=== PATIENT | female | born 1945 | race Caucasian/White ===

== ENCOUNTER 2016-10-30 05:44 | Day surgery (SDC) | payer OTHER ==
[2016-10-30] MEDS ORDERED: LIDOCAINE 1% 5 ML SDV ID PRN (06:37)
[2016-10-30] MEDS ORDERED: LR 1,000 ML IV ONE (06:37)
[2016-10-30] MEDS ORDERED: fentaNYL 100 MCG/2 ML INJ ONE (07:13)
[2016-10-30] MEDS ORDERED: PROPOFOL/EMULSION 500 MG/50 ML BOTTLE IV ONE ×2 (07:13→07:47)
[2016-10-30] MEDS ORDERED: ONDANSETRON 4 MG/2 ML VIAL ONE (07:14)
[2016-10-30] MEDS ORDERED: DEXAMETHASONE 4 MG/ML VIAL ONE ×2 (07:14)
[2016-10-30] MEDS ORDERED: LIDOCAINE 2% 100 MG/5 ML SYR ONE (07:14)
[2016-10-30] MEDS ORDERED: MIDAZOLAM 2 MG/2 ML VIAL ONE (07:21)
--- NOTE | 2016-10-30 09:20 | GPN ---
[f rep st] PROCEDURE NOTE PREPROCEDURE DIAGNOSES: 1. Hoarseness. 2. Laryngopharyngeal reflux. 3. Hiatal hernia. 4. Need for screening colonoscopy. POSTPROCEDURE DIAGNOSES: 1. Large 5 cm hiatal hernia. 2. Mild antral gastritis. 3. Mild to moderate rodriguez diverticulosis. 4. Grade 2 internal hemorrhoids. PROCEDURES: EGD with biopsies and colonoscopy. MEDICATIONS: Monitored anesthesia care. INDICATIONS: The patient is a 71-year-old female with a history of hoarseness and laryngopharyngeal reflux who was recently seen in our office by Dr. Brower for worsening reflux and a large hiatal he rnia. 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 DESCRIPTION OF PROCEDURE: The upper endoscope was inserted into the esophagus, into the stomach and second portion of the duodenum. The GE junction is located at 35 cm from the incisors. She has a large 5 cm sliding hiatal hernia. There is no evidence of Whalen esophagitis or varices. She has mild antral gastritis as noted by erythema. Biopsies were taken using cold biopsy forceps to evalua te for Helicobacter pylori. The duodenum and second portion were normal. The patient was then repositioned and the adult colonoscope was advanced into the terminal ileum. T he terminal ileum, ileocecal valve, appendiceal orifice, and cecum appeared normal. She has mild to moderate rodriguez diverticulosis, left greater than right involvement. The majority of the diverticula are small with some medium diverticula as well. The mucosa in the ascending colon, hepatic flexure, transverse colon, splenic flexure, sigmoid colon, descending colon, and rectum is normal. Retrofle xed views in the rectum show grade 2 internal hemorrhoids. No polyps were found. IMPRESSION: 1. Large sliding hiatal hernia. 2. Mild antral gastritis. 3. Rodriguez mild to moderate diverticulosis. 4. Grade 2 internal hemorrhoids. RECOMMENDATIONS: 1. Discharge to home with escort. 2. Advance diet as tolerated. 3. Continue current acid suppression therapy. She was recently increased to 40 mg of omeprazole da rachna and ranitidine 300 mg at night, which is controlling her reflux symptoms. 4. Follow up with final biopsy results, which are available within 10 days. 5. Follow up with Dr. Brower in GI clinic as previously scheduled. 6. Repeat screening colonoscopy in 10 years. This should be scheduled at the hospital. Thank you for allowing me to participate in the care of your patient. Please do not hesitate to nestor plascencia with questions. /[id number]/MODL
== END 2016-10-30 09:00 | disposition home or self-care (01) ==
LOC: FSGY 05:44
PROVIDERS: ATTEND Internal Medicine Gastroenterology
DX: K29.70 Gastritis, unspecified, without bleeding (principal); K44.9 Diaphragmatic hernia without obstruction or gangrene; K57.30 Diverticulosis of large intestine without perforation or abscess without bleeding; K64.8 Other hemorrhoids; K21.9 Gastro-esophageal reflux disease without esophagitis
CPT/HCPCS: J1100; J2001; J2250; J2405; J2704; J3010

== ENCOUNTER → 2016-11-01 | Outpatient (CLI) | payer OTHER | LOC: FIMAGING 07:46 | PROVIDERS: ATTEND Internal Medicine Pulmonary Disease | DX: J44.9 Chronic obstructive pulmonary disease, unspecified (principal); R91.8 Other nonspecific abnormal finding of lung field; K44.9 Diaphragmatic hernia without obstruction or gangrene; I25.10 Atherosclerotic heart disease of native coronary artery without angina pectoris ==

== ENCOUNTER → 2017-02-12 | Outpatient (CLI) | payer OTHER | LOC: FIMAGING 07:36 | PROVIDERS: ATTEND Internal Medicine | DX: Z12.31 Encounter for screening mammogram for malignant neoplasm of breast (principal) | CPT/HCPCS: G0202 ==

== ENCOUNTER → 2017-05-23 | Outpatient (CLI) | payer OTHER | LOC: FIMAGING 07:43 | PROVIDERS: ATTEND Internal Medicine Pulmonary Disease | DX: R91.1 Solitary pulmonary nodule (principal); R59.9 Enlarged lymph nodes, unspecified ==

== ENCOUNTER → 2017-06-07 | Outpatient (CLI) | payer OTHER | LOC: FIMAGING 04-19 08:47 | PROVIDERS: ATTEND Internal Medicine | DX: Z13.820 Encounter for screening for osteoporosis (principal); M85.89 Other specified disorders of bone density and structure, multiple sites ==

== ENCOUNTER 2017-12-26 07:39 | Day surgery (SDC) | payer OTHER ==
--- NOTE | 2017-12-26 07:32 | PDHPUP ---
History & Physical Update H&P update statement: This history and physical update is based on an assessment of the patient which was completed after admission or registration (within 24 hours), but prior to the surgery/procedure. H&P update: H&P reviewed & patient examined, no change in patient's condition since H&P completed
[2017-12-26] MEDS ORDERED: ceFAZolin 2 GM/SWFI 2 GM/20 ML SYR IVP ONE (07:57)
[2017-12-26] MEDS ORDERED: LIDOCAINE 1% 2 ML INJ ID PRN (08:00)
[2017-12-26] MEDS ORDERED: LR 1,000 ML IV ONE (08:00)
[2017-12-26] MEDS ORDERED: ceFAZolin 2 GM in D5W 100 ML IV ONE (08:00)
--- NOTE | 2017-12-26 08:18 | POSTANESTH ---
Post Anesthetic Evaluation Cardiovascular Status: Normal, Stable Respiratory Status: Normal, Stable Level of Consciousness/Mental Status: Can Participate in Eval, Alert and Oriented Pain Control: Adequate, Prn Tx Ordered Nausea/Vomiting Control: Adequate, Prn Tx Ordered Complications Possibly Related to Anesthesia: None Noted
--- NOTE | 2017-12-26 08:22 | PDANEPAE ---
ANE History of Present Illness 72 yo female for port placement. ANE Past Medical History - Cardiovascular History Hx Hypertension: No Hx Arrhythmias: Yes Hx Chest Pain: No Hx Coronary Artery / Peripheral Vascular Disease: No Hx CHF / Valvular Disease: No Hx Palpitations: No Cardiovascular History Comment: hypercholesterolemia. svt- worse when on chemo (2014 for original uterine cancer) per pt report. ascending aortic aneurysm ( 3.6 cm, small). has been seen at [facility], recently seen at [facility] since there is where she is doing cancer treatment - Pulmonary History Hx COPD: Yes Hx Asthma/Reactive Airway Disease: No Hx Recent Upper Respiratory Infection: No Hx Oxygen in Use at Home: Yes O2 in Use at Home (L/minute): 2.5l at [facility] Hx Sleep Apnea: No Sleep Apnea Screening Result - Last Documented: Positive Pulmonary History Comment: hx of maty uses o2, getting another sleep study done per resp recommendations. pulmonary mets. ct guided lung bx in october ended up with pneumo- resolved on it's own per pt report. mild emphysema - Neurologic History Hx Cerebrovascular Accident: No Hx Seizures: No Hx Dementia: No Neurologic History Comment: compression fx of thoracic vertebra - Endocrine History Hx Diabetes: No Hypothyroid: No Obesity: no - Renal History Hx Renal Disorders: No Renal History Comment: hx of renal calculi for years no problems currently - Liver History Hx Hepatic Disorders: No - Neurological & Psychiatric Hx Hx Neurological and Psychiatric Disorders: Yes Neurological / Psychiatric History Comment: depression. 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 basal cell. squamous cell - Congenital Disorder History Hx Congenital Disorders: No - GI History GERD: moderate Hx Gastrointestinal Disorders: Yes Gastrointestinal History Comment: large hiatal hernia. reflux. diverticulitis. hx of egd and colonoscopy 10/2016 - Other Health History Other Health History: wears glasses. osteopenia - Chronic Pain History Chronic Pain: No - Surgical History Prior Surgeries: 10/31/17 ct guided lung bx at [facility] ended up with pneumothorax- resoloved on own. 10/30/16 egd and colonoscopy with Amy. tonsils at 7 yo. vein stripping in right leg 1970. 1989 septoplasty. 2005 face lift, upper blephloplasty. 2012 radical hysterectomy ANE Review of Systems Review of Systems: - Exercise capacity METS (RN): 3 METS - Systems Respiratory: Reports: cough (worse cough with smoke/allergies recently) ANE Patient History - Allergies Allergies/Adverse Reactions: No Known Allergies Allergy (Verified 12/25/17 15:34) - Home Medications Home Medications: Benzonatate 03/23/15 [Last Taken 12/19/17] Biotin 03/23/15 [Last Taken 12/25/17 20:00] Fluticasone Propionate 03/23/15 [Last Taken 12/25/17] Omeprazole 09/20/16 [Last Taken 12/26/17 06:00] Proair Hfa Icu (*) 09/20/16 [Last Taken 12/23/17] Ranitidine HCl 09/20/16 [Last Taken 12/25/17 08:00] Singulair 09/20/16 [Last Taken 12/25/17] Acyclovir Prn 12/25/17 [Last Taken Unknown] Anoro Ellipta 62.5-25 Mcg INH 12/25/17 [Last Taken 12/26/17 06:00] Benadryl At Hs 12/25/17 [Last Taken 12/25/17 20:00] Mucinex Dm ER 1,200-60 mg Tab 12/25/17 [Last Taken 12/26/17 06:00] Sertraline HCl 12/25/17 [Last Taken 12/25/17 22:00] - NPO status NPO Since - Liquids (Date): 12/26/17 NPO Since - Liquids (Time): 06:00 NPO Since - Solids (Date): 12/25/17 NPO Since - Solids (Time): 21:00 - Anes Hx Anes Hx: post operative nausea and vomiting - Smoking Hx Smoking Status: Former smoker Marijuana use: No - Alcohol Use Alcohol Use: Rarely - Family Anes Hx Family Anes Hx: neg - N/A Family Hx Anesthesia Complications: none ANE Labs/Vital Signs - Vital Signs Blood Pressure: 144/87 Heart Rate: 64 Respiratory Rate: 14 O2 Sat (%): 99 Height: 168 cm Weight: 73 kg ANE Physical Exam - Airway Neck exam: FROM (short TMD) Mallampati Score: Class 2 Mouth exam: normal dental/mouth exam - Pulmonary Pulmonary: clear to auscultation - Cardiovascular Cardiovascular: regular rate and rhythym - ASA Status ASA Status: IV ANE Anesthesia Plan Anesthesia Plan: GA with mask Total IV Anesthesia: Yes
[2017-12-26] MEDS ORDERED: BUPIVACAINE 0.25% 30 ML SDV ONE (09:29)
[2017-12-26] MEDS ORDERED: NALOXONE HCL 0.4 MG/ML INJ IVP PRN (10:00)
[2017-12-26] MEDS ORDERED: ACETAMINOPHEN 500 MG TAB PO PRN (10:00)
[2017-12-26] MEDS ORDERED: LR 500 ML IV PRN (10:00)
[2017-12-26] MEDS ORDERED: ALBUTEROL 3 ML DEYVIAL IH PRN (10:00)
[2017-12-26] MEDS ORDERED: ONDANSETRON 4 MG/2 ML VIAL IVP PRN (10:00)
[2017-12-26] MEDS ORDERED: fentaNYL 100 MCG/2 ML INJ IVP PRN (10:00)
--- NOTE | 2017-12-26 10:11 | POSTOPPROG ---
Post Op Note Date of Operation: 12/26/17 Surgeon: Jhonatan Lambert Anesthesiologist: Andrés Anesthesia: IV Sedation Pre-op Diagnosis: metastatic leiomyosarcoma Post-op Diagnosis: same Indication: chemo Procedure: US guided R IJ port placement with intra-op fluoro Findings: flushed and withdrew well Inf/Abcess present in the surg proc area at time of surgery?: No EBL: Minimal
--- NOTE | 2017-12-26 11:48 | GOP ---
[f rep st] OPERATIVE REPORT DATE OF OPERATION: 12/26/2017 SURGEON: Jhonatan Lambert MD COUNCILOR: None. ANESTHESIA: General endotracheal. ANESTHESIOLOGIST: Dr. Li. PREOPERATIVE DIAGNOSIS: Metastatic leiomyosarcoma. POSTOPERATIVE DIAGNOSIS: Metastatic leiomyosarcoma. PROCEDURE PERFORMED: Ultrasound-guided right internal jugular PowerPort placement with intraoperativ e fluoroscopy. FINDINGS: Successful cannulation of the right internal jugular vein. The Slim port was placed subcu taneous just beneath the collarbone. It both withdrew and flushed appropriately. It was heparin loc ked. SPECIMENS: None. ESTIMATED BLOOD LOSS: 5 cc. DESCRIPTION OF PROCEDURE: The patient was greeted in the preoperative suite, and once again, risks, benefits, and alternatives were discussed. Consent was signed. She was then brought back to the ope rative suite, placed on the OR table in supine position. After all anesthesia machines, including SC Ds were on and functioning, [employer] time-out was performed. After the patient was gently sedated, her right neck was prepped and draped in typical sterile fashion. She was placed in gentle Trendelenburg position. I successfully cannulated the right internal jugular vein using ultrasound guidance. I threaded my g uidewire. Once the guidewire was in appropriate position, over which I placed my peel-away sheath. I then selected a site approximately 2 finger breaths below the patient's right clavicle. I made a 2 cm incision at this site and created a pocket inferiorly. I then tracked the catheter itself from t he port site to the stick site and placed it within the peel-away sheath. Using intraoperative fluor oscopy, I successfully placed the tip of the catheter at the atrial caval junction. Peel-away cathet er was then removed. It was attached to the port. It was placed within the pocket. It both withdre w and flushed appropriately. It was heparin locked. It was attached to the subcutaneous tissue with an interrupted Prolene stitch. The skin was then closed with interrupted 3-0 Vicryl and running 4-0 Monocryl over which Dermabond was placed. The patient was then gently awoken and taken to the PACU in satisfactory condition. DRAINS: None. COUNTS: All counts were reported as correct x2. /[id number]/MODL
[2017-12-26 11:50] VITALS: BP 148/91
== END 2017-12-26 11:45 | disposition home or self-care (01) ==
LOC: FSGY 07:39
PROVIDERS: ATTEND Surgery
PROC: 02HV33Z Insertion of Infusion Device into Superior Vena Cava, Percutaneous Approach (ICD-10-PCS; principal; 2017-12-26 09:00)
PROC: 0JH60XZ Insertion of Tunneled Vascular Access Device into Chest Subcutaneous Tissue and Fascia, Open Approach (ICD-10-PCS; principal; 2017-12-26 09:00)
PROC: B5181ZA Fluoroscopy of Superior Vena Cava using Low Osmolar Contrast, Guidance (ICD-10-PCS; principal; 2017-12-26 09:00)
DX: C49.9 Malignant neoplasm of connective and soft tissue, unspecified (principal); J42 Unspecified chronic bronchitis; R91.8 Other nonspecific abnormal finding of lung field; F41.8 Other specified anxiety disorders; Z85.42 Personal history of malignant neoplasm of other parts of uterus; E78.00 Pure hypercholesterolemia, unspecified; I71.2 Thoracic aortic aneurysm, without rupture; Z87.891 Personal history of nicotine dependence
CPT/HCPCS: C1788; J0690; J1642